=== PATIENT | male | born 1950 | race Two or more races ===

== ENCOUNTER 2017-12-06 17:43 | Emergency (ER) | payer OTHER, MEDICAID ==
[2017-12-06 17:54] VITALS: PULSE 95
--- NOTE | 2017-12-06 17:57 | EDPHY ---
H & P Stated Complaint: epistaxis Time Seen by Provider: 12/06/17 17:56 HPI/ROS: HPI: This is a 67-year-old male presents with Chief Complaint: Nosebleed Location: Left nare Quality: Nosebleed Duration: 3 days Signs and Symptoms: Timing: Intermittently Severity: Mild Context: Patient has a history of hypertension, is compliant on 3 medication, presents with 3 day history of left near nose bleed that has self resolved. He has occurred approximately 4 times. He does admit to digital manipulation of his left nostril. He has central heat and has been cold out. Denies any upper respiratory symptoms/fever/easily bruising. Denies taking any NSAIDs or blood thinners. Went to the pharmacy approximately 1 hr prior to arrival, tried nasal saline spray without relief. For nose bleeds in the past have resolved with pressure. Upon arrival into the emergency room he no longer has a nose bleed. Denies cocaine use. Denies dizziness/shortness of breath/chest pain/ easy bruising/bleeding gums. Modifying Factors: See above Comment: ROS: see HPI Constitutional: No fever, no chills, no weight loss Eyes: No blurred vision Respiratory: No shortness of breath, no cough Cardiovascular: No chest pain Gastrointestinal: No nausea, no vomiting, no diarrhea Genitourinary: No dysuria Extremities: No myalgias Neurologic: No weakness, no numbness Skin: No rashes Hematologic: No bruising, + bleeding MEDICAL/SURGICAL/SOCIAL HISTORY: Medical history: Hypertension, back injury Surgical history: Denies Social history: Retired. CONSTITUTIONAL: Extremely anxious elderly white male, awake and alert, no obvious distress HEENT: Atraumatic and normocephalic, PERRL, EOMI. Nares: Patent; no septal hematoma. Left narrow approximately at 8:00 position shows a small tiny anterior dried bleed; dried nasal mucosa. Tympanic membranes clear. Oropharynx clear, no exudate and moist pink mucosa. Airway patent. No lymphadenopathy. No meningismus. Cardiovascular: Normal S1/S2, regular rate, regular rhythm, without murmur rub or gallop. PULMONARY/CHEST: Symmetrical and nontender. Clear to auscultation bilaterally. Good air movement. No accessory muscle usage. ABDOMEN: Soft, nondistended, nontender, no rebound, no guarding, no peritoneal signs, no masses or organomegaly. No CVAT. EXTREMITIES: 2/2 pulses, strength 5/5, no deformities, no clubbing, no cyanosis or edema. NEUROLOGICAL: no focal neuro deficits. GCS 15. SKIN: Warm and dry, no erythema. no rash. Good capillary refill. Source: Patient Exam Limitations: No limitations - Personal History Current Tetanus/Diphtheria Vaccine: No Current Tetanus Diphtheria and Acellular Pertussis (TDAP): No Tetanus Vaccine Date: < 10 years - Medical/Surgical History Hx Asthma: No Hx Chronic Respiratory Disease: No Hx Diabetes: No Hx Cardiac Disease: Yes Hx Renal Disease: No Hx Cirrhosis: No Hx Alcoholism: Yes Hx HIV/AIDS: No Hx Splenectomy or Spleen Trauma: No Other PMH: HTN. back injury - Social History Smoking Status: Former smoker Constitutional: Initial Vital Signs Temperature (C) 36.6 C 12/06/17 17:52 Heart Rate 95 12/06/17 17:52 Respiratory Rate 16 12/06/17 17:52 Blood Pressure 147/97 H 12/06/17 17:52 O2 Sat (%) 94 12/06/17 17:52 O2 Delivery Mode Room Air Allergies/Adverse Reactions: No Known Allergies Allergy (Verified 12/06/17 17:49) Home Medications: Medication Instructions Recorded Amlodipine Besylate 11/22/13 Metoprolol Succinate Xr 11/22/13 Quinapril HCl 11/22/13 Ibuprofen [Motrin (*)] 600 mg PO TID #21 tab 09/27/16 Medical Decision Making Procedures: Procedure: Epistaxis control. After verbal consent was obtained, the patient was NOT anesthetized. The anterior epistaxis was identified in the left nare. The patient was treated with Afrin and silver nitrate. Following the procedure the patient was re- examined and the bleeding was well controlled. The patient tolerated the procedure well. The procedure was performed by myself. ED Course/Re-evaluation: CBC and coags ordered Blood pressure 147/97 upon arrival No signs of anemia/coagulopathy Afrin, silver nitrate and Vaseline stop the epistaxis. monitored for 1.5 hours, patient walking around room and drinking water without reoccurrence of epistaxis. Etiology nasal mucosa dryness and digital manipulation. This patient was seen under the supervision of my secondary supervising physician. I evaluated care for this patient independently. Differential Diagnosis: Differential diagnosis includes but is not limited to coagulopathy, nasal tumor , hemophilia, arteriovenous malformation, digital manipulation, nasal mucosa dryness. - Data Points Laboratory Results: Laboratory Results 12/06/17 18:40 18 12/06/17 18:40 18:40 WBC 9.19 10^3/uL 10^3/uL (3.80-9.50) RBC 4.89 10^6/uL 10^6/uL (4.40-6.38) Hgb 16.6 g/dL g/dL (13.7-17.5) Hct 44.8 % % (40.0-51.0) MCV 91.6 fL fL (81.5-99.8) MCH 33.9 pg pg (27.9-34.1) MCHC 37.1 g/dL H g/dL (32.4-36.7) RDW 12.8 % % (11.5-15.2) Plt Count 275 10^3/uL 10^3/uL (150-400) MPV 8.6 fL L fL (8.7-11.7) Neut % (Auto) 67.3 % % (39.3-74.2) Lymph % (Auto) 19.6 % % (15.0-45.0) Wheeler % (Auto) 9.9 % % (4.5-13.0) Eos % (Auto) 2.2 % % (0.6-7.6) Baso % (Auto) 0.8 % % (0.3-1.7) Nucleat RBC Rel Count 0.0 % % (0.0-0.2) Absolute Neuts (auto) 6.19 10^3/uL 10^3/uL (1.70-6.50) Absolute Lymphs (auto) 1.80 10^3/uL 10^3/uL (1.00-3.00) Absolute Monos (auto) 0.91 10^3/uL H 10^3/uL (0.30-0.80) Absolute Eos (auto) 0.20 10^3/uL 10^3/uL (0.03-0.40) Absolute Basos (auto) 0.07 10^3/uL 10^3/uL (0.02-0.10) Absolute Nucleated RBC 0.00 10^3/uL 10^3/uL (0-0.01) Immature Gran % 0.2 % % (0.0-1.1) Immature Gran # 0.02 10^3/uL 10^3/uL (0.00-0.10) PT 12.9 SEC SEC (12.0-15.0) INR 0.95 (0.83-1.16) APTT 27.9 SEC SEC (23.0-38.0) Medications Given: Discontinued Medications Oxymetazoline HCl (Afrin Nasal [place]) 2 sprays EACHNARE EDNOW ONE Stop: 12/06/17 18:05 Last Admin: 12/06/17 18:43 Dose: Not Given Silver Nitrate/Potassium Nitrate (Silver Nitrate Applicator) 1 each TP EDNOW ONE Stop: 12/06/17 18:05 Last Admin: 12/06/17 18:44 Dose: Not Given Departure - Departure Disposition: Home, Routine, Self-Care Clinical Impression: Anterior epistaxis Condition: Good Instructions: Nosebleed (ED) Additional Instructions: Please do not blow your nose or pick your nose x 7 days. Apply Vaseline to both of your nostrils at night. Use saline nasal spray every 2-3 hours during the day for nasal dryness. If Nosebleed reoccurs, apply direct pressure. If nosebleed does not stop within 30 min, return to the emergency room for evaluation. Referrals: [facility],. [Clinic] - As per Instructions Rubin Morrow MD [Medical Doctor] - As per Instructions
[2017-12-06] MEDS ORDERED: SILVER NITRATE APPLICATOR 1 APPL TP ONE (18:04)
[2017-12-06] MEDS ORDERED: OXYMETAZOLINE 30 ML NASAL SPRAY EACHNARE ONE (18:04)
[2017-12-06 18:47] LABS: PLATELET COUNT 275 10^3/uL (150-400)
[2017-12-06 18:58] LABS: INR 0.95 (0.83-1.16); PROTIME(PATIENT) 12.9 SEC (12.0-15.0)
[2017-12-06 19:10] VITALS: BP 135/98; RESP 18; TEMP 98.6; O2SAT 95
== END 2017-12-06 19:10 | disposition home or self-care (01) ==
PROC: 3E09XTZ Introduction of Destructive Agent into Nose, External Approach (ICD-10-PCS; principal; 2017-12-06)
DX: R04.0 Epistaxis (principal); I10 Essential (primary) hypertension; Z87.891 Personal history of nicotine dependence

== ENCOUNTER 2018-03-06 13:55 | Emergency (ER) | payer OTHER, MEDICAID ==
[2018-03-06 14:01] VITALS: BP 149/79
--- NOTE | 2018-03-06 14:08 | EDPHY ---
H & P Stated Complaint: R NECK PAIN FOR 1 WEEK, RADIATES TO ARM, STARTED ON BACLOFEN BY [facility] Time Seen by Provider: 03/06/18 14:07 HPI/ROS: HPI: This is a 67-year-old male who presents with Chief Complaint: R NECK PAIN FOR 1 WEEK, RADIATES TO ARM, STARTED ON BACLOFEN BY [facility] Location: Posterior and right side of neck Quality: Aching, spasm Duration: 1 week Signs and Symptoms: No bleeding, + radiation, no numbness, no weakness, no tingling, no incontinence, no decreased range of motion, no swelling, + pain, no fever Timing: Waxes away Severity: 02/23 Context: Patient presents to the emergency room with complaints of waxing and waning posterior neck and right sided neck pain that started approximately 1 week ago. He reports that he was seen by his PCP and given backup plan and started ibuprofen moderate transient relief. He does not remember an actual injury or sleeping funny. He is wondering if he has arthritis. He has had this radiating pain down into his right bicep that occurs with certain movements of his head. He is right-hand dominant. Denies any numbness/ weakness. He reports that his range of motion has improved in his neck over the last few days. Denies LOC/head injury/neck pain/dizziness/nausea/vomiting/ amnesia. Modifying Factors: baclofen, ibuprofen Comment: ROS: see HPI Constitutional: No fever, no chills, no weight loss Eyes: No blurred vision Respiratory: No shortness of breath, no cough Cardiovascular: No chest pain Gastrointestinal: No nausea, no vomiting no diarrhea Genitourinary: No dysuria Extremities: No myalgias Neurologic: No weakness, no numbness Skin: No rashes Hematologic: No bruising, no bleeding MEDICAL/SURGICAL/SOCIAL HISTORY: Medical history: Hypertension, low back problems Surgical history: Appendectomy Social history: Primary care provider is [facility]. CONSTITUTIONAL: Extremely pleasant and talkative elderly male, awake and alert, no obvious distress HEENT: Atraumatic and normocephalic. NECK: supple, no midline tenderness, flexion 45 degrees, extension 45 degrees, right and left lateral flexion 45 degrees. No meningismus. Cardiovascular: Normal S1/S2, regular rate, regular rhythm, without murmur rub or gallop. PULMONARY/CHEST: Symmetrical and nontender. no crepitus. Clear to auscultation bilaterally. Good air movement. No accessory muscle usage. ABDOMEN: Soft, nondistended, nontender, no ecchymosis. PELVIC: no pain with rocking; bilateral hips flexion 125 degrees, extension 30 degrees, with no pain internal rotation and no pain external rotation. BACK: No midline tenderness, no paraspinous spasm, deep tendon reflexes 2/2, no pain with straight leg raise, No foot drop. Achilles reflexes are equal bilaterally. Able to walk on heels and toes without difficulty. EXTREMITIES: 2/2 pulses, strength 5/5, right SHOULDER: Arc test abduction to 180, abduction to 45, horizontal flexion 130, horizontal extension to 45, deltoid strength 5/5. No pain with Neer test/Esteban test (impingement). No Tenderness to palpation over AC joint. DIP/PIP/MCP flexion/extension intact with good light touch sensation. no deformities, no clubbing, no cyanosis or edema. NEUROLOGICAL: no focal neuro deficits. GCS 15. Light touch sensation intact. SKIN: Warm and dry, no erythema. no rash. Good capillary refill. Source: Patient Exam Limitations: No limitations - Personal History Current Tetanus Diphtheria and Acellular Pertussis (TDAP): Yes Tetanus Vaccine Date: < 10 years - Medical/Surgical History Hx Asthma: No Hx Chronic Respiratory Disease: No Hx Diabetes: No Hx Cardiac Disease: Yes Hx Renal Disease: No Hx Cirrhosis: No Hx Alcoholism: Yes Hx HIV/AIDS: No Hx Splenectomy or Spleen Trauma: No Other PMH: HTN, APPY. back injury - Social History Smoking Status: Former smoker Constitutional: Initial Vital Signs Temperature (C) 36.8 C 03/06/18 13:58 Heart Rate 65 03/06/18 13:58 Respiratory Rate 18 03/06/18 13:58 Blood Pressure 149/79 H 03/06/18 13:58 O2 Sat (%) 97 03/06/18 13:58 O2 Delivery Mode Room Air Allergies/Adverse Reactions: No Known Allergies Allergy (Verified 12/06/17 17:49) Home Medications: Medication Instructions Recorded Amlodipine Besylate 11/22/13 Metoprolol Succinate Xr 11/22/13 Quinapril HCl 11/22/13 Ibuprofen [Motrin (*)] 600 mg PO TID #21 tab 11/12/16 Baclofen 03/06/18 Lidocaine [Lidoderm] 1 each TP Q12 PRN #6 adh..patch 03/06/18 methylPREDNISolone [Medrol Dose 1 each PO AD #0 ea 03/06/18 Alberto] Medical Decision Making - Diagnostics Imaging Results: Imaging Impressions Cervical Spine X-Ray 03/06/18 14:28 Impression: Severe multilevel degenerative changes. ED Course/Re-evaluation: Patient reports that his symptoms are slowly improving. Per his request cervical x-ray ordered. Given Lidoderm patch, gabapentin, Decadron 8 mg Cervical x-ray my read shows severe DDD No signs of neurovascular compromise/tenting of skin/compartment syndrome/ extremities and joints examined above and below area of concern and are neurovascularly intact. This patient was seen under the supervision of my secondary supervising physician. I evaluated care for this patient independently. Differential Diagnosis: Neck pain differential includes but is not limited to cervical degenerative disc disease, disc herniation, radiculopathy, trapezius muscle strain, cervical paraspinous muscle strain. - Data Points Medications Given: Discontinued Medications Dexamethasone (Decadron) 8 mg PO EDNOW ONE Stop: 03/06/18 14:30 Last Admin: 03/06/18 14:40 Dose: 8 mg Gabapentin (Neurontin) 600 mg PO EDNOW ONE Stop: 03/06/18 14:29 Last Admin: 03/06/18 14:40 Dose: 600 mg Miscellaneous Medication (Icy Hot Lidocaine/Menthol 4%/1% Patch) 1 patch TD EDNOW ONE Stop: 03/06/18 14:29 Last Admin: 03/06/18 14:40 Dose: 1 patch Departure - Departure Disposition: Home, Routine, Self-Care Clinical Impression: Cervical radiculopathy Condition: Good Instructions: Cervical Radiculopathy (ED) Additional Instructions: Take Tylenol 650 mg every 4 hours and/or Ibuprofen 600 mg every 8 hours with food as needed for pain. Continue to use Baclofen every 8 hr as needed for muscle spasms. Take Medrol Dosepak as directed until complete. Use Lidoderm patches on the area of most discomfort for 12 hr at a time. If symptoms continue to persist, follow up with primary care provider in 1-2 weeks to discuss MRI cervical spine to be ordered outpatient to further evaluate pathology or referral to Orthopedic-Spine. Referrals: Patric Martínez MD [Primary Care Provider] - As per Instructions Prescriptions: Lidocaine [Lidoderm] 1 each TP Q12 PRN #6 adh..patch PRN Reason: Pain, Moderate methylPREDNISolone [Medrol Dose Alberto] 1 each PO AD #0 ea
[2018-03-06] MEDS ORDERED: LIDOCAINE 4%/MENTHOL 1% PATCH TD ONE (14:28)
[2018-03-06] MEDS ORDERED: GABAPENTIN 300 MG CAP PO ONE (14:28)
[2018-03-06] MEDS ORDERED: DEXAMETHASONE 4 MG TAB PO ONE (14:29)
[2018-03-06] MEDS ORDERED: PATCH REMOVAL 1 EA PATCH TD SCH (21:00)
== END 2018-03-06 14:50 | disposition home or self-care (01) ==
DX: M54.12 Radiculopathy, cervical region (principal); I10 Essential (primary) hypertension; Z87.891 Personal history of nicotine dependence

== ENCOUNTER 2018-03-08 18:25 | Emergency (ER) | payer OTHER, MEDICAID ==
--- NOTE | 2018-03-08 19:36 | EDPHY ---
H & P Time Seen by Provider: 03/08/18 19:32 HPI/ROS: Chief complaint. Right neck and right shoulder pain HPI. 67-year-old male presents emergency department with 10 day history right neck and right shoulder pain. He has seen his PCP and was started on baclofen and ibuprofen. There was no injury. He was seen in our emergency department March 06 2 days ago with the above history. He really manifest as right shoulder pain though does not have pain to his right shoulder with range of motion. He tells me that when he looks down or up he has right shoulder pain. Pain is not in the shoulder itself. Patient had cervical spine x-ray 2 days ago that showed multi level severe DJD. His symptoms seem to be helped with Tylenol. He was prescribed Medrol Dosepak but has not started it yet. No fever. No trauma ROS Constitutional. no fever/chills, no weakness Eyes. no problems with vision ENT. no sore throat, no nasal drainage Cardiovascular. no chest pain Respiratory. no shortness of breath, no cough Abdominal. no abdominal pain, no nausea/vomiting, no diarrhea . no problems urinating MS. Right shoulder pain Skin. no rash Lymph. no swollen glands Neuro. no headache, no dizziness, no difficulty walking or with speech Past Medical/Surgical History: Hypertension, appendectomy Social History: Single, nonsmoker, no alcohol Smoking Status: Former smoker Physical Exam: General Appearance: Alert well-developed male mild distress vital signs stable Eyes: Pupils equal and round no pallor or injection. ENT, Mouth: Mucous membranes are moist. Respiratory: There are no retractions, lungs are clear to auscultation. Cardiovascular: Regular rate and rhythm. Gastrointestinal: Abdomen is soft and nontender, no masses, bowel sounds normal. Neurological: Awake and alert, sensory and motor exams grossly normal. Skin: Warm and dry, no rashes. Musculoskeletal: Neck is supple with mild right-sided tenderness. Extremities full range of motion about the shoulder without any significant discomfort Psychiatric: Patient is oriented X 3, there is no agitation. Constitutional: Initial Vital Signs Temperature (C) 36.7 C 03/08/18 18:31 Heart Rate 69 03/08/18 18:31 Respiratory Rate 16 03/08/18 18:31 Blood Pressure 128/88 H 03/08/18 18:31 O2 Sat (%) 96 03/08/18 18:31 O2 Delivery Mode Room Air Allergies/Adverse Reactions: No Known Allergies Allergy (Verified 12/06/17 17:49) Home Medications: Medication Instructions Recorded Amlodipine Besylate 11/22/13 Metoprolol Succinate Xr 11/22/13 Quinapril HCl 11/22/13 Ibuprofen [Motrin (*)] 600 mg PO TID #21 tab 09/27/16 Baclofen 03/06/18 Lidocaine [Lidoderm] 1 each TP Q12 PRN #6 adh..patch 03/06/18 methylPREDNISolone [Medrol Dose 1 each PO AD #0 ea 03/06/18 Alberto] Medical Decision Making ED Course/Re-evaluation: I discussed treatment plan with the patient of obtaining MRI tonight of his cervical spine as well as an x-ray of his shoulder. He would like prednisone only and he has an appointment with his PCP in 2 days. Patient and I discussed this and criteria for return and importance of follow-up. He expresses understanding and agreement. He does not wish imaging tonight Differential Diagnosis: Likely this is cervical radiculopathy. As far as I can tell there is no shoulder involvement those possibly could have rotator cuff tear. Departure - Departure Disposition: Home, Routine, Self-Care Clinical Impression: Cervical radiculopathy Condition: Good Instructions: Cervical Radiculopathy (ED) Additional Instructions: Start the Medrol Dosepak tomorrow. May use Tylenol with the Medrol Dosepak. Discontinue ibuprofen. Keep your follow-up appointment with Dr. Martínez on Thursday Referrals: Patric Martínez MD [Primary Care Provider] - As per Instructions
[2018-03-08] MEDS ORDERED: predniSONE 20 MG TAB PO ONE (19:52)
[2018-03-08 20:30] VITALS: BP 127/79
== END 2018-03-08 20:34 | disposition home or self-care (01) ==
DX: M54.12 Radiculopathy, cervical region (principal); I10 Essential (primary) hypertension; Z87.891 Personal history of nicotine dependence
CPT/HCPCS: 99283; J7512

== ENCOUNTER 2018-03-09 16:31 | Emergency (ER) | payer OTHER, MEDICAID ==
[2018-03-09] MEDS ORDERED: PANTOPRAZOLE SODIUM 40 MG VIAL IVP ONE (17:13)
[2018-03-09] MEDS ORDERED: NS 1,000 ML IV ONE (17:13)
--- NOTE | 2018-03-09 17:17 | EDPHY ---
H & P Stated Complaint: pt c/o blood in stool today Source: Patient, RN/MD, Old records Exam Limitations: No limitations - Personal History Tetanus Vaccine Date: < 10 years - Medical/Surgical History Hx Asthma: No Hx Chronic Respiratory Disease: No Hx Diabetes: No Hx Cardiac Disease: Yes Hx Renal Disease: No Hx Cirrhosis: No Hx Alcoholism: Yes Hx HIV/AIDS: No Hx Splenectomy or Spleen Trauma: No Other PMH: HTN, APPY. back injury - Social History Smoking Status: Former smoker Time Seen by Provider: 03/09/18 17:14 HPI/ROS: HPI: This is a 67-year-old male who presents with Chief Complaint: pt c/o blood in stool today Location: GI Quality: Blood in stool Duration: Today Signs and Symptoms: no fever, no nausea, no vomiting, + hematemesis, + blood in stool, no abdominal bloating, no diarrhea, no back pain, no urinary symptoms, no testicular/groin pain, no indigestion, no chest pain, no shortness of breath Timing: Acute Severity: [id number] Context: Patient presents with complaints of black stool today as well as coughing up dark black blood today. He was taking anti-inflammatories with his Medrol Dosepak that he started yesterday for severe degenerative disc disease as well as cervical radiculopathy. Patient was seen in the emergency room for 2117 with right neck and shoulder pain. Cervical x-rays at that time showed severe degenerative disc disease. Patient was placed on the Medrol Dosepak and advised to continue baclofen. Patient then returned on 03/08/2018 with continued pain. At that time he advised him that he had not started the Medrol Dosepak. He took his 1st dose of steroids yesterday. Saw at the clinic today with complaints of black stool and brought in a cup of dark emesis. He was sent from the clinic to the ER for further evaluation with concerns of upper GI bleed. Patient reports to the nurse practitioner that he drinks a shot of whiskey daily. When I questioned the patient, he reports that he only had 1 dark stool and denies any hematemesis. He reports that he believes that he had some dark school as he took ibuprofen, Medrol Dosepak and a shot of whiskey at the same time. no Prior history of GI bleeding. Modifying Factors: None Comment: ROS: see HPI Constitutional: No fever, no chills, no weight loss Eyes: No blurred vision Respiratory: No shortness of breath, no cough Cardiovascular: No chest pain, no palpitations Gastrointestinal: No nausea, no vomiting, no diarrhea, no hematemesis, + blood in stool Genitourinary: No dysuria, no blood in urine Extremities: No myalgias, no edema Neurologic: No weakness, no numbness Skin: No rashes, no petechiae Hematologic: No bruising, no bleeding MEDICAL/SURGICAL/SOCIAL HISTORY: Medical history: Hypertension, cervical degenerative disc disease, alcoholism Surgical history: Appendectomy Social history: former smoker. Family history noncontributory. CONSTITUTIONAL: Chronically ill-appearing adult male who appears older than stated age, awake and alert, no obvious distress HEENT: Atraumatic and normocephalic, PERRL, EOMI. Nares patent; no rhinorrhea; no nasal mucosal edema. Tympanic membranes clear. Oropharynx clear, no exudate and moist pink mucosa. Airway patent. No lymphadenopathy. No meningismus. Cardiovascular: Normal S1/S2, regular rate, regular rhythm, without murmur rub or gallop. PULMONARY/CHEST: Symmetrical and nontender. Clear to auscultation bilaterally. Good air movement. No accessory muscle usage. ABDOMEN: Soft, nondistended, nontender, no rebound, no guarding, no peritoneal signs, no masses or organomegaly. No CVAT. RECTAL: Good sphincter tone, light brown stool in vault, no external hemorrhoids , no fissures, no palpable masses, trace guaiac positive EXTREMITIES: 2/2 pulses, strength 5/5, no deformities, no clubbing, no cyanosis or edema. NEUROLOGICAL: no focal neuro deficits. GCS 15. SKIN: Warm and dry, no erythema. no rash. Good capillary refill. ([place]) Constitutional: Initial Vital Signs Temperature (C) 36.5 C 03/09/18 16:35 Heart Rate 92 03/09/18 16:35 Respiratory Rate 18 03/09/18 16:35 Blood Pressure 145/92 H 03/09/18 16:35 O2 Sat (%) 98 03/09/18 16:35 O2 Delivery Mode Room Air Allergies/Adverse Reactions: No Known Allergies Allergy (Verified 12/06/17 17:49) Home Medications: Medication Instructions Recorded Amlodipine Besylate 11/22/13 Metoprolol Succinate Xr 11/22/13 Quinapril HCl 11/22/13 Baclofen 03/06/18 Lidocaine [Lidoderm] 1 each TP Q12 PRN #6 adh..patch 03/06/18 Esomeprazole Mag Trihydrate 40 mg PO DAILY #14 stephanie. 03/09/18 [Nexium] traMADol [Ultram 50 mg (*)] 50 mg PO Q6 PRN #10 tab 03/09/18 Medical Decision Making ED Course/Re-evaluation: Vital signs reviewed upon arrival and stable. No systemic signs. Labs, IV fluids, IV medications, occult blood stool ordered Given IV Protonix 80 mg and 1 L normal saline Trace guaiac positive Abdomen soft and nontender; doubt surgical abdomen 1750: Labs reviewed; potassium 2.8; 40 mEq potassium supplementation given; magnesium 1.8. Sodium 131. H&H stable. Offered patient admission and he politely declines. Advised that he needs to follow up and have repeat potassium level in 3-5 days, gastroenterology follow-up outpatient. Stop taking anti-inflammatories and steroid taper. Given tramadol and advised to continue baclofen for chronic cervical DDD. This patient was seen under the supervision of my secondary supervising physician. I evaluated care for this patient independently. Discussed this patient with Dr. Angeles who did not see the patient. (Kelle Ortez) I also saw this patient in the emergency department. I had seen the patient the night before. We discussed his neck pain. He had declined MRI. We had started the patient on Medrol Dosepak. He was encouraged not to use both anti- inflammatories and prednisone. He tells me his neck and shoulder pain are much improved however he did have some blood in his stool. He really does not have abdominal pain. His abdomen is soft and no focal tenderness. I discussed treatment plan with the patient in [place] while the patient was in the department. I agree with treatment plan and management (Juan Pablo Angeles) Differential Diagnosis: Differential diagnosis includes but is not limited to alcoholic gastritis, NSAID induced gastritis, peptic ulcer disease, esophageal varices. (Kelle Ortez) - Data Points Laboratory Results: Laboratory Results 03/09/18 17:01 03/09/18 17:01 Medications Given: Discontinued Medications Sodium Chloride (Ns) 1,000 mls @ 0 mls/hr IV EDNOW ONE; Wide Open PRN Reason: Protocol Stop: 03/09/18 17:14 Last Admin: 03/09/18 17:22 Dose: 1,000 mls Pantoprazole Sodium (Protonix) 80 mg IVP EDNOW ONE Stop: 03/09/18 17:14 Last Admin: 03/09/18 17:22 Dose: 80 mg Potassium Chloride (Klor-Con) 40 meq PO ONCE ONE Stop: 03/09/18 17:52 Last Admin: 03/09/18 18:00 Dose: 40 meq Departure - Departure Disposition: Home, Routine, Self-Care Clinical Impression: Stool guaiac positive, Alcoholic gastritis, Gastritis due to nonsteroidal anti- inflammatory drug (NSAID), Hypokalemia Condition: Good Instructions: Gastritis (ED), Gastrointestinal Bleeding (ED), Diet for Stomach Ulcers and Gastritis (ED), Potassium Content of Foods List (ED), Hypokalemia (ED ) Additional Instructions: Consume a minimum of 8-10 glasses of water or electrolyte fluid replacement drinks that include Gatorade, Powerade, Pedialyte. Eat a bland diet for the next 48 hours and then slowly advance as tolerated. Take Nexium daily. Slowly decrease your alcohol intake. Stop taking Medrol Dosepak and NSAIDs including ibuprofen, Aleve, Motrin, Advil. Take Tramadol 1 tab every 6 hr as needed for severe or breakthrough pain. Follow-up with your primary care provider in 3-5 days for repeat potassium level. You will need a blood draw for this. Eat potassium rich foods. Follow up with Gastroenterology in 7-10 days for evaluation and determine candidacy for EGD outpatient. Return to the ER immediately if you experience new, continued or worsening abdominal pain, fevers/chills, inability to tolerate oral intake, new pain, or any other symptoms that concern you. Referrals: Patric Martínez MD [Primary Care Provider] - 2-3 days without fail Dylan Mathias MD [Medical Doctor] - As per Instructions Prescriptions: Esomeprazole Mag Trihydrate [Nexium] 40 mg PO DAILY #14 cap. traMADol [Ultram 50 mg (*)] 50 mg PO Q6 PRN #10 tab PRN Reason: Pain, Moderate
[2018-03-09 17:31] LABS: INR 0.95 (0.83-1.16); PROTIME(PATIENT) 12.9 SEC (12.0-15.0)
[2018-03-09] MEDS ORDERED: POTASSIUM CL 20 MEQ TAB PO ONE (17:51)
[2018-03-09 18:13] LABS: PLATELET COUNT 281 10^3/uL (150-400)
[2018-03-09 18:43] VITALS: BP 139/96
== END 2018-03-09 18:56 | disposition home or self-care (01) ==
DX: K29.20 Alcoholic gastritis without bleeding (principal); T38.0X5A Adverse effect of glucocorticoids and synthetic analogues, initial encounter; E87.6 Hypokalemia; I10 Essential (primary) hypertension; E86.9 Volume depletion, unspecified; Z87.891 Personal history of nicotine dependence
CPT/HCPCS: 96374

== ENCOUNTER 2018-04-05 17:25 | Emergency (ER) | payer OTHER, MEDICAID ==
[2018-04-05 17:49] VITALS: BP 159/93
--- NOTE | 2018-04-05 18:01 | EDPHY ---
H & P Stated Complaint: R shoulder pain Time Seen by Provider: 04/05/18 18:00 - Personal History Current Tetanus/Diphtheria Vaccine: No Current Tetanus Diphtheria and Acellular Pertussis (TDAP): No Tetanus Vaccine Date: < 10 years - Medical/Surgical History Hx Asthma: No Hx Chronic Respiratory Disease: No Hx Diabetes: No Hx Cardiac Disease: No Hx Renal Disease: No Hx Cirrhosis: No Hx Alcoholism: Yes Hx HIV/AIDS: No Hx Splenectomy or Spleen Trauma: No Other PMH: HTN, APPY,. back injury - Social History Smoking Status: Former smoker Constitutional: Initial Vital Signs Temperature (C) 37 C 04/05/18 17:48 Heart Rate 78 04/05/18 17:48 Respiratory Rate 16 04/05/18 17:48 Blood Pressure 159/93 H 04/05/18 17:48 O2 Sat (%) 98 04/05/18 17:48 O2 Delivery Mode Room Air Allergies/Adverse Reactions: No Known Allergies Allergy (Verified 04/05/18 17:45) Home Medications: Medication Instructions Recorded Amlodipine Besylate 11/22/13 Metoprolol Succinate Xr 11/22/13 Baclofen 03/06/18 traMADol [Ultram 50 mg (*)] 50 mg PO Q6 PRN #10 tab 03/09/18 Gabapentin 04/05/18 Tylenol 04/05/18 oxyCODONE IR [Oxycodone Ir (*)] 5 - 10 mg PO Q6 PRN #30 tab 04/05/18 Medical Decision Making ED Course/Re-evaluation: CHIEF COMPLAINT: Right shoulder pain HISTORY OF PRESENT ILLNESS: The patient is a 67 y/o male with a history of hypertension and chronic back pain complaining of right shoulder pain. He was recently diagnosed with a right rotator cuff injury and had MRI studies preformed. On Thursday, 5 days ago, his PCP (Dr. Martínez) preformed a steroid injection. Since this injection, he has had worsening pain. Today he began to have a tingling sensation in his right hand and was unable to sleep last night due to the pain. He has been taking Ibuprofen and Tylenol for the pain, but this has since stopped working. Denies fever, headache, shortness of breath, chest pain, abdominal pain, numbness. REVIEW OF SYSTEMS: A 10 point review of systems was performed and is negative with the exception of the elements mentioned in the history of present illness. PHYSICAL EXAM: HR, BP, O2 Sat, RR. Temp noted General Appearance: Alert, well hydrated, appropriate, and non-toxic appearing. Head: Atraumatic without scalp tenderness or obvious injury Eyes: Pupils equal, round, reactive to light and accommodation, EOMI, no trauma , no injection. Ears: Clear bilaterally, no perforation, normal landmarks Nose: Atraumatic, no rhinorrhea, clear. Throat: There is no erythema or exudates, no lesions, normal tonsils, mucus membranes moist. Neck: Supple, nontender, no lymphadenopathy. Respiratory: No retractions, no distress, no wheezes, and no accessory muscle use. Lungs are clear to auscultation bilaterally. Cardiovascular: Regular rate and rhythm, no murmurs, rubs, or gallops. Good capillary refill all extremities. Gastrointestinal: Abdomen is soft, nontender, non-distended, no masses, no rebound, no guarding, no peritoneal signs. Musculoskeletal: Right shoulder tenderness to palpation. This is not a septic joint. Normal active ROM of all extremities, atraumatic. Neurological: Alert, appropriate, and interactive. Nonfocal neuro. Skin: No rashes, good turgor, no nodules on palpation. Past medical history: Hypertension, chronic back pain Past surgical history: Appendectomy Family history: Denies Social history: Single, lives in [place], [facility] DIFFERENTIAL DIAGNOSIS: The differential diagnosis for the patient's shoulder pain included but was not limited to fracture, ligamentous injury, contusion, muscular strain. MEDICAL DECISION MAKING: The patient is a 67 y/o male with a history of hypertension and chronic back pain presenting with right shoulder pain. On exam his right shoulder is tender but this is not a septic joint. The patient is not febrile or sick. Laboratory and imaging studies are not indicated at this time. 1 tab Percocet administered. 1816: Reassessed patient and discussed OxyIR prescription. He is feeling better after Percocet. I have advised him to follow up with an orthopedic surgeon. Return precautions provided; patient is comfortable with this plan. - Data Points Medications Given: Discontinued Medications Oxycodone/Acetaminophen (Percocet 5/325) 1 tab PO EDNOW ONE Stop: 04/05/18 18:23 Last Admin: 04/05/18 18:23 Dose: 1 tab Departure - Departure Disposition: Home, Routine, Self-Care Clinical Impression: Shoulder pain, right Qualifiers: Chronicity: acute Qualified Code(s): M25.511 - Pain in right shoulder Condition: Good Instructions: Oxycodone/Acetaminophen (By mouth), Rotator Cuff Injury (ED), Shoulder Pain (ED) Additional Instructions: 1. Rest, ice, elevation. 2. Follow up with an orthopedic surgeon within one week. 3. Return to the emergency department for worsening pain, swelling, numbness, weakness or other concerns. 4. You will likely need an MRI to further evaluate your injury. 5. Take OxyIR as prescribed for severe pain. 6. Use ibuprofen in addition to prescribed pain medication as directed for pain. 7. Do not take Tylenol. Referrals: Patric Martínez MD [Primary Care Provider] - As per Instructions Giuseppe Bustos MD [Medical Doctor] - As per Instructions Prescriptions: oxyCODONE IR [Oxycodone Ir (*)] 5 - 10 mg PO Q6 PRN #30 tab PRN Reason: Pain, Severe Report Scribed for: Mart Whitfield Report Scribed by: Sylwia Stoner Date of Report: 04/05/18 Time of Report: 18:01
[2018-04-05] MEDS ORDERED: OXYCODONE/APAP 5/325MG PREPACK#4 BTL TAKEHOME ONE (18:10)
[2018-04-05] MEDS ORDERED: OXYCODONE/APAP 5/325 TAB ONE (18:21)
[2018-04-05] MEDS ORDERED: OXYCODONE/APAP 5/325 TAB PO ONE (18:22)
== END 2018-04-05 18:23 | disposition home or self-care (01) ==
DX: M25.511 Pain in right shoulder (principal); I10 Essential (primary) hypertension; Z87.891 Personal history of nicotine dependence

== ENCOUNTER 2018-04-06 11:50 | Emergency (ER) | payer OTHER, MEDICAID ==
--- NOTE | 2018-04-06 12:08 | EDPHY ---
H & P Stated Complaint: R shoulder pain - Personal History Current Tetanus/Diphtheria Vaccine: Yes Current Tetanus Diphtheria and Acellular Pertussis (TDAP): Yes Tetanus Vaccine Date: < 10 years - Medical/Surgical History Hx Asthma: No Hx Chronic Respiratory Disease: No Hx Diabetes: No Hx Cardiac Disease: No Hx Renal Disease: No Hx Cirrhosis: No Hx Alcoholism: Yes Hx HIV/AIDS: No Hx Splenectomy or Spleen Trauma: No Other PMH: HTN, APPY,. back injury - Social History Smoking Status: Former smoker Time Seen by Provider: 04/06/18 12:05 Constitutional: Initial Vital Signs Temperature (C) 37 C 04/06/18 12:01 Heart Rate 109 H 04/06/18 12:01 Respiratory Rate 20 04/06/18 12:01 Blood Pressure 132/89 H 04/06/18 12:01 O2 Sat (%) 98 04/06/18 12:01 O2 Delivery Mode Room Air Allergies/Adverse Reactions: No Known Allergies Allergy (Verified 04/06/18 12:00) Home Medications: Medication Instructions Recorded Amlodipine Besylate 11/22/13 Metoprolol Succinate Xr 11/22/13 Baclofen 03/06/18 traMADol [Ultram 50 mg (*)] 50 mg PO Q6 PRN #10 tab 03/09/18 Gabapentin 04/05/18 Tylenol 04/05/18 oxyCODONE IR [Oxycodone Ir (*)] 5 - 10 mg PO Q6 PRN #30 tab 04/05/18 Medical Decision Making Procedures: Procedure: Arthrocentesis. After verbal informed consent was obtained explaining the risks including but not limited to infection and bleeding a arthrocentesis was performed on the for right shoulder. The patient was prepped and draped in the usual sterile fashion. The joint was anesthetized with 5 mL of 1% lidocaine. Approximately 0 mL of fluid was obtained. There were no complications. The procedure was performed by myself. (Kelle Ortez) ED Course/Re-evaluation: CHIEF COMPLAINT: Right shoulder pain HISTORY OF PRESENT ILLNESS: The patient is a 67 y/o male with a history of hypertension and chronic back pain complaining of right shoulder pain. He was recently diagnosed with a right rotator cuff injury and had MRI studies preformed. On Thursday, 5 days ago, his PCP (Dr. Martínez) preformed a steroid injection. Since this injection, he has had worsening pain. Yesterday he was prescribed OxyIR in this emergency department by myself, but this has not alleviated the pain. Denies fever, headache, shortness of breath, chest pain, abdominal pain, numbness. REVIEW OF SYSTEMS A 10 point review of systems was performed and is negative with the exception of the elements mentioned in the history of present illness. PHYSICAL EXAM: HR, BP, O2 Sat, RR. Temp noted General Appearance: Alert, well hydrated, appropriate, and non-toxic appearing. Head: Atraumatic without scalp tenderness or obvious injury Eyes: Pupils equal, round, reactive to light and accommodation, EOMI, no trauma , no injection. Ears: Clear bilaterally, no perforation, normal landmarks Nose: Atraumatic, no rhinorrhea, clear. Throat: There is no erythema or exudates, no lesions, normal tonsils, mucus membranes moist. Neck: Supple, nontender, no lymphadenopathy. Respiratory: No retractions, no distress, no wheezes, and no accessory muscle use. Lungs are clear to auscultation bilaterally. Cardiovascular: Regular rate and rhythm, no murmurs, rubs, or gallops. Good capillary refill all extremities. Gastrointestinal: Abdomen is soft, nontender, non-distended, no masses, no rebound, no guarding, no peritoneal signs. Musculoskeletal: Right shoulder tenderness to palpation. This is not a septic joint. Normal active ROM of all extremities, atraumatic. Neurological: Alert, appropriate, and interactive. Nonfocal neuro. Skin: No rashes, good turgor, no nodules on palpation. Past medical history: Hypertension, chronic back pain Past surgical history: Appendectomy Family history: Denies Social history: Single, lives in [place], [facility] DIFFERENTIAL DIAGNOSIS: The differential diagnosis for the patient's shoulder pain included but was not limited to fracture, ligamentous injury, contusion, muscular strain. MEDICAL DECISION MAKING: The patient is a 67 y/o male with a history of hypertension and chronic back pain presenting with right shoulder pain that is not improving with OxyIR prescription. On exam his right shoulder is tender, this could be a septic joint. Kelle DE JESUS will tap the shoulder. 1241: There was no fluid expressed in the tap. Patient's pain is most likely coming from his neck. I spoke with case management who will set up follow up care with [facility], an orthopedic surgeon, and neurologist. Reassessed patient and discussed follow up with his PCP. Return precautions provided; patient is comfortable with this plan. (Mart Whitfield) Departure - Departure Disposition: Home, Routine, Self-Care Clinical Impression: Shoulder pain Qualifiers: Chronicity: acute Laterality: right Qualified Code(s): M25.511 - Pain in right shoulder Condition: Good Instructions: Shoulder Pain (ED) Additional Instructions: 1. Rest, ice, elevation. 2. Follow up with an orthopedic surgeon within one week. 3. Return to the emergency department for worsening pain, swelling, numbness, weakness or other concerns. 4. You will likely need an MRI to further evaluate your injury. 5. Take OxyIR as prescribed for severe pain. 6. Use ibuprofen in addition to prescribed pain medication as directed for pain. 7. Do not take Tylenol. Referrals: Patric Martínez MD [Primary Care Provider] - As per Instructions Giuseppe Bustos MD [Medical Doctor] - As per Instructions Fab Maier DO [Medical Doctor] - As per Instructions Report Scribed for: Mart Whitfield Report Scribed by: Sylwia Stoner Date of Report: 04/06/18 Time of Report: 12:07
[2018-04-06 12:57] VITALS: BP 136/98
--- NOTE | 2018-04-06 14:05 | ASMTCMCOM ---
CM Note CM Note Notes: Dr. Bustos's office contacted and ER report faxed for patient follow up re R shoulder. I spoke with Dr. Akash Shukla's PA re scheduling an appointment douglas with Dr. Bustos. Vazquez confirms that he will discuss with Dr. Bustos and that someone from the office will contact patient to schedule appointment. Patient informed. I have encouraged patient to follow up with both his PCP, Patric Martínez and [facility] as well. He assures me he will Date Signed: 04/06/2018 02:05 PM Electronically Signed By:Odalis Lawrence RN
== END 2018-04-06 13:14 | disposition home or self-care (01) ==
PROC: 0R9J3ZZ Drainage of Right Shoulder Joint, Percutaneous Approach (ICD-10-PCS; principal; 2018-04-06)
DX: M25.511 Pain in right shoulder (principal); I10 Essential (primary) hypertension; Z87.891 Personal history of nicotine dependence

== ENCOUNTER 2018-04-08 15:22 | Emergency (ER) | payer OTHER, MEDICAID ==
[2018-04-08 15:33] VITALS: BP 113/86
--- NOTE | 2018-04-08 15:36 | EDPHY ---
H & P Stated Complaint: right shoulder pain x months Time Seen by Provider: 04/08/18 15:34 HPI/ROS: 67 yo M presents c/o right shoulder pain for months, recently seen at [facility] , has appointment tomorrow with orthopedics. Presents stating the Oxycodone is not helping his pain , in fact he is not taking much of it. He states he was given a shot yesterday at [facility] that helped and would like that if possible. He believes it was Tordol. He has no new symptoms, he is able to move his arm well, no rash and no swelling. Review of systems General no fever no chills no weakness HEENT no eye pain no eye discharge. No eye redness, no sore throat Respiratory no cough, no shortness of breath Cardiac no chest pain, no peripheral edema GI no abdominal pain, no diarrhea, no constipation, no nausea, no vomiting no flank pain, no hematuria, no dysuria Musculoskeletal no myalgias, positive joint pain Heme no easy bruising, no easy bleeding Endo no polyuria, no polydipsia Skin no rashes, no pruritus Neuro no syncope, no dizziness, no headaches Psych is no suicidal ideation, no homicidal ideation Source: Patient Exam Limitations: No limitations - Personal History Current Tetanus/Diphtheria Vaccine: No Current Tetanus Diphtheria and Acellular Pertussis (TDAP): No Tetanus Vaccine Date: < 10 years - Medical/Surgical History Hx Asthma: No Hx Chronic Respiratory Disease: No Hx Diabetes: No Hx Cardiac Disease: Yes Hx Renal Disease: No Hx Cirrhosis: No Hx Alcoholism: Yes Hx HIV/AIDS: No Hx Splenectomy or Spleen Trauma: No Other PMH: HTN, APPY,. back injury - Family History Significant Family History: No pertinent family hx - Social History Smoking Status: Former smoker Alcohol Use: Other Drug Use: Other - Physical Exam Exam: 67-year-old male alert and oriented in no acute distress while seated on the gurney Alert and oriented in no acute distress nontoxic appearance, afebrile Atraumatic normocephalic Neck no JVD Lungs clear to auscultation, no respiratory distress Heart regular rate and rhythm Extremities no cyanosis clubbing edema Right shoulder-full range of motion, no erythema, no swelling,pos tenderness at lateral deltoid Right arm-good brachial, radial, ulnar pulses No swelling of arm, full range of motion at elbow, wrist, digits Patient able to make a fist Constitutional: Initial Vital Signs Temperature (C) 36.6 C 04/08/18 15:27 Heart Rate 83 04/08/18 15:27 Respiratory Rate 20 04/08/18 15:27 Blood Pressure 113/86 H 04/08/18 15:27 O2 Sat (%) 97 04/08/18 15:27 O2 Delivery Mode Room Air Allergies/Adverse Reactions: No Known Allergies Allergy (Verified 04/06/18 12:00) Home Medications: Medication Instructions Recorded Amlodipine Besylate 11/22/13 Metoprolol Succinate Xr 11/22/13 Baclofen 03/06/18 Gabapentin 04/05/18 Tylenol 04/05/18 oxyCODONE IR [Oxycodone Ir (*)] 5 - 10 mg PO Q6 PRN #30 tab 04/05/18 Potassium Chloride 20 meq PO DAILY 14 Days #18 04/08/18 tablet.er Medical Decision Making ED Course/Re-evaluation: Patient seen and evaluated for ongoing pain In right shoulder. He has had multiple visits to the emergency department as well as his primary . This pain has been an issue for several months. He is due to see Orthopedics on and April 09 at 3:00 p.m.. I noticed in previous lab results that his Potassium was low and repeated it today in case that is contributing to his pain. K today was 2.7, he was given 40 meq po and rx for potassium, as well as advised to follow with his pcp for repeat K testing . Imp Chronic right shoulder pain Hypokalemia Plan Given Tordol 60 IM Given potassium and rx dc advised to follow up with pcp, and ortho Differential Diagnosis: Differential diagnosis considered but not limited to: Acute on chronic shoulder pain, rotator cuff injury, bursitis, joint infection, chronic shoulder pain, electrolyte imbalance - Data Points Laboratory Results: 04/08/18 15:58 POC Hgb 16.0 gm/dL gm/dL (13.7-17.5) POC Hct 47 % % (40-51) POC Sodium 142 mEq/L mEq/L (135-145) POC Potassium 2.7 mEq/L L* mEq/L (3.3-5.0) POC Chloride 102 mEq/L mEq/L (97-110) POC BUN 26 mg/dL H mg/dL (7-23) POC Creatinine 1.3 mg/dL mg/dL (0.7-1.3) POC Glucose 100 mg/dL mg/dL (70-100) Medications Given: Discontinued Medications Ketorolac Tromethamine (Toradol) 60 mg IM EDNOW ONE Stop: 04/08/18 15:46 Last Admin: 04/08/18 16:07 Dose: 60 mg Potassium Chloride (Klor-Con) 40 meq PO ONCE ONE Stop: 04/08/18 16:06 Last Admin: 04/08/18 16:15 Dose: 40 meq Point of Care Test Results: 04/08/18 15:58 POC Sodium 142 POC Potassium 2.7 L* POC Chloride 102 POC BUN 26 H POC Creatinine 1.3 POC Glucose 100 Departure - Departure Disposition: Home, Routine, Self-Care Clinical Impression: Right shoulder pain, Hypokalemia Condition: Good Instructions: Rotator Cuff Injury (ED), Hypokalemia (ED) Additional Instructions: Follow up with your primary care doctor in 1- 2 weeks to have your potassium rechecked. I am giving you a prescription for potassium, to take 2 each day for 4 days, then one a day for 10 days. Referrals: Patric Martínez MD [Primary Care Provider] - As per Instructions Prescriptions: Potassium Chloride 20 meq PO DAILY 14 Days #18 tablet.er
[2018-04-08] MEDS ORDERED: KETOROLAC 30 MG/1 ML SDV IM ONE (15:45)
[2018-04-08] MEDS ORDERED: POTASSIUM CL 20 MEQ TAB PO ONE (16:05)
== END 2018-04-08 16:17 | disposition home or self-care (01) ==
LOC: CED 15:22
DX: M25.511 Pain in right shoulder (principal); E87.6 Hypokalemia; I10 Essential (primary) hypertension; Z87.891 Personal history of nicotine dependence
CPT/HCPCS: 96372; 99284; J1885; 82947-QW

== ENCOUNTER 2018-04-10 11:37 | Emergency (ER) | payer OTHER, MEDICAID ==
[2018-04-10] MEDS ORDERED: KETOROLAC 30 MG/1 ML SDV IM ONE (11:45)
[2018-04-10 11:49] VITALS: BP 133/95
--- NOTE | 2018-04-10 12:01 | EDPHY ---
H & P Time Seen by Provider: 04/10/18 11:46 HPI/ROS: 67 year old male presents requesting a Toradol shot for his right shoulder pain. No fever or chills no rash no swelling of shoulder. Review of systems As per HPI General no fever no chills no weakness HEENT no eye pain no eye discharge. No eye redness, no sore throat Respiratory no cough, no shortness of breath Cardiac no chest pain, no peripheral edema GI no abdominal pain, no diarrhea, no constipation, no nausea, no vomiting no flank pain, no hematuria, no dysuria Musculoskeletal no myalgias, positive joint pain Heme no easy bruising, no easy bleeding Endo no polyuria, no polydipsia Skin no rashes, no pruritus Neuro no syncope, no dizziness, no headaches Psych is no suicidal ideation, no homicidal ideation Past Medical/Surgical History: Hypertension Chronic right shoulder pain Social History: Single, denies alcohol use Smoking Status: Former smoker Physical Exam: 67-year-old male alert and oriented no acute distress, nontoxic appearance, afebrile Atraumatic normocephalic Neck no tenderness Right shoulder full range of motion no swelling no ecchymosis no rash Good distal pulses Constitutional: Initial Vital Signs Temperature (C) 37 C 04/10/18 11:46 Heart Rate 94 04/10/18 11:46 Respiratory Rate 20 04/10/18 11:46 Blood Pressure 133/95 H 04/10/18 11:46 O2 Sat (%) 96 04/10/18 11:46 O2 Delivery Mode Room Air Allergies/Adverse Reactions: No Known Allergies Allergy (Verified 04/06/18 12:00) Home Medications: Medication Instructions Recorded Amlodipine Besylate 11/22/13 Metoprolol Succinate Xr 11/22/13 Tylenol 04/05/18 oxyCODONE IR [Oxycodone Ir (*)] 5 - 10 mg PO Q6 PRN #30 tab 04/05/18 Colace 04/10/18 Medical Decision Making ED Course/Re-evaluation: pt here requesting a Toradol shot for chronic right shoulder pain. His pain is primarily in his right upper lateral deltoid and is not reproducible on exam. Patient has been seen multiple times at the [facility] ER and this is his 2nd visit to [facility] requesting a Toradol shot. He states he has follow-up with Neurosurgery. Impression/Plan ?Cervical Radiculopathy Pt seems to get immediate relief after tordol injection which doesnt make sense, possibly some psychogenic component. I advised the patient that the tordol is similar to ibuprofen and that he can take ibuprofen at home. - Data Points Medications Given: Discontinued Medications Ketorolac Tromethamine (Toradol) 30 mg IM EDNOW ONE Stop: 04/10/18 11:46 Last Admin: 04/10/18 11:57 Dose: 30 mg Departure - Departure Disposition: Home, Routine, Self-Care Clinical Impression: Pain in right shoulder Condition: Good Instructions: Shoulder Pain (ED), Cervical Radiculopathy (ED) Referrals: Patric Martínez MD [Primary Care Provider] - As per Instructions
== END 2018-04-10 12:05 | disposition home or self-care (01) ==
LOC: CED 11:37
DX: M25.511 Pain in right shoulder (principal); I10 Essential (primary) hypertension; Z87.891 Personal history of nicotine dependence
CPT/HCPCS: 96372; 99284; J1885

== ENCOUNTER 2018-04-11 11:44 | Emergency (ER) | payer OTHER, MEDICAID ==
[2018-04-11] MEDS ORDERED: MAGNESIUM CITRATE 300 ML BOTTLE PO ONE (13:14)
--- NOTE | 2018-04-11 13:14 | EDPHY ---
H & P Time Seen by Provider: 04/11/18 12:53 HPI/ROS: CHIEF COMPLAINT: Constipation HISTORY OF PRESENT ILLNESS: Patient has been seen in our ED for a pinched nerve his right arm is been taken narcotic pain medication prescribed Dr. Patric Martínez his PCP for the past 4 days. Feels like he needs to have a bowel movement but cannot. Does not have abdominal pain but has sense of rectal fullness and need to defecate and is feeling constipated. Not associated with vomiting or fever or blood per rectum. REVIEW OF SYSTEMS: Eye: no change in vision ENT: no sore throat Cardiac: no chest pain or syncope Pulmonary: no cough or SOB Abdomen: HPI Musculoskeletal: Right arm pain from pinched nerve in his neck, stable Skin: no rash Neuro: no headache Constitutional: no fever : no urinary symptoms A comprehensive 10 point review of systems is otherwise negative aside from elements mentioned in the history of present illness. PAST MEDICAL HISTORY: Hypertension, appendectomy, back injury, right arm as above Social history: Currently not smoking General Appearance: Alert and conversant, cooperative. Eyes: No scleral icterus. ENT, Mouth: Normal mucous membranes. Respiratory: Normal respiratory effort, breath sounds equal, lungs are clear to auscultation. Cardiovascular: Regular rate and rhythm. Gastrointestinal: Abdomen is soft and non tender. Rectal exam shows large amount of firm stool in the vault, manually disimpacted by myself. Neurological: Alert, face symmetric, normal motor and sensory in extremities. Ambulatory. Skin: Warm and dry, no rashes. Musculoskeletal: No peripheral edema. Psychiatric: Not agitated. Emergency Department course/MDM: Patient has constipation clinically and on physical exam confirmed, likely from opioid pain medication. Does not have high likelihood for surgical abdominal process. Low suspicion for bowel obstruction, no previous surgeries. Oral magnesium citrate , discharge, and outpatient follow-up. Smoking Status: Former smoker Constitutional: Initial Vital Signs Temperature (C) 36.7 C 04/11/18 11:58 Heart Rate 97 04/11/18 11:58 Respiratory Rate 16 04/11/18 11:58 Blood Pressure 127/102 H 04/11/18 11:58 O2 Sat (%) 97 04/11/18 11:58 O2 Delivery Mode Room Air Allergies/Adverse Reactions: No Known Allergies Allergy (Verified 04/11/18 11:58) Home Medications: Medication Instructions Recorded Amlodipine Besylate 11/22/13 Metoprolol Succinate Xr 11/22/13 Tylenol 04/05/18 oxyCODONE IR [Oxycodone Ir (*)] 5 - 10 mg PO Q6 PRN #30 tab 04/05/18 Colace 04/10/18 Medical Decision Making - Data Points Medications Given: Discontinued Medications Magnesium Citrate (Magnesium Citrate) 300 ml PO EDNOW ONE Stop: 04/11/18 13:15 Last Admin: 04/11/18 13:20 Dose: 1 btl Departure - Departure Disposition: Home, Routine, Self-Care Clinical Impression: Constipation Qualifiers: Constipation type: drug induced constipation Qualified Code(s): K59.03 - Drug induced constipation Condition: Good Instructions: Constipation (ED) Additional Instructions: Drink the bottle of magnesium citrate. You can also try MiraLax and dissolve half a bottle in water or Gatorade, purchased [id number] at the grocery store. Referrals: Patric Martínez MD [Primary Care Provider] - As per Instructions
[2018-04-11 13:25] VITALS: BP 143/99
== END 2018-04-11 13:25 | disposition home or self-care (01) ==
DX: K59.03 Drug induced constipation (principal); T40.695A Adverse effect of other narcotics, initial encounter; I10 Essential (primary) hypertension; Z87.891 Personal history of nicotine dependence